=== PATIENT | male | born 1950 | race Caucasian/White ===

== ENCOUNTER 2017-04-06 13:41 | Emergency (ER) | payer OTHER, BC ==
[~2017-04-06] VITALS: Ht 175.3 cm; Wt 78.1 kg
[2017-04-06 13:49] VITALS: TEMP 36.7; Ht 175.3 cm; Wt 78.1 kg
[2017-04-06 14:25] VITALS: O2SAT 97
[2017-04-06 14:37] LABS: HEMATOCRIT 48.4 % (42-52); MEAN CELL VOLUME 90.5 fL (80-100); MEAN CORPUSCULAR HEMOGLOBIN 29.7 pg (25-34); MEAN CORPUSCULAR HGB CONC 32.9 g/dl (32-36); MEAN PLATELET VOLUME 10.8 fL (7.4-10.4); PLATELET COUNT 193 K/uL (130-400); RED BLOOD COUNT 5.35 M/uL (4.7-6.1); WHITE BLOOD COUNT 7.39 K/uL (4.8-10.8)
--- NOTE | 2017-04-06 14:39 | DIAGNOSTIC IMAGING REPORT ---
CHEST ONE VIEW PORTABLE HISTORY: Atypical CHEST PAIN COMPARISON: None. FINDINGS: Left basilar linear densities favor subsegmental atelectasis are scarring. Old, healed left-sided rib fractures. The right lung is clear. No pleural effusions. No pneumothorax. The heart is normal in size. Mildly tortuous thoracic aorta. IMPRESSION: Left basilar linear densities favor subsegmental atelectasis or scarring. Otherwise, no acute process within the chest. Electronically signed by: Jose Chaudhary M.D. 04/06/2017 2:38 PM Dictated Date/Time: 04/06/2017 2:36 PM
[2017-04-06 14:49] LABS: PARTIAL THROMBOPLASTIN RATIO 1.1; PROTHROMBIN TIME (PATIENT) 10.5 SECONDS (9.0-12.0)
[2017-04-06 15:10] LABS: BUN/CREATININE RATIO 17.1 (10-20); POTASSIUM 4.4 mmol/L (3.5-5.1)
[2017-04-06 15:14] LABS: ALB/GLOB RATIO 1.2 (0.9-2); CKMB/CK RATIO 1.5 (0-3.0)
[2017-04-06] MEDS ORDERED: ASPIRIN 81 MG CHEW PO STA (15:47)
[2017-04-06] MEDS ORDERED: ONDANSETRON INJ 2 MG/ML 2 ML VIAL IV STA (15:47)
[2017-04-06] MEDS ORDERED: MoRPHine SULFATE 4 MG/ML 1 ML CARP\\VIAL IV STA (15:47)
[2017-04-06] MEDS ORDERED: ASPI81TA28 PO (15:51)
[2017-04-06 16:43] VITALS: BP 135/99; PULSE 73; O2SAT 93
--- NOTE | 2017-04-06 20:31 | EMERGENCY ROOM VISIT NOTE ---
History Report prepared by Vinicius: Robert Ozuna Under the Supervision of: Dr. Alan Villalobos M.D. First contact with patient: 14:21 Chief Complaint: CHEST PAIN Stated Complaint: DULL ACHE/PAIN LT CHEST SHOULDER AREA - HEART? Nursing Triage Summary: Just had an MRI and MRA of the brain because of headaches and mother of aneurysm. He has had a dull ache on the left chest wall. Tingling in the fingers. Dr. Holley sent for cardiac enzymes. History of Present Illness The patient is a 66 year old male who presents to the Emergency Room with complaints of constant, dull chest pain that started this morning. He rates his current discomfort a 1/10 in severity. The patient states that he has been having intermitted chest pain that started three months ago. He reports that he did not have pain last night. He notes that his fingers were tingling this morning as well. The patient's reports that he is extremely active and he gets cramps in his calves and arches of his feet. He notes that when he twists to the right, he feels the pain radiate to his shoulder. He notes he has also had intermittent headaches for the past two years. He reports that he would take Excedrin and they go away. Pt denies LOC, Current headache, fevers, chills , diaphoresis, visual changes, neck pain, breathing difficulties, nausea, vomiting, abdominal pain, back pain, melena, hematochezia, urinary symptoms, numbness, weakness, lymphadenopathy, rash, or other complaints. Source of History: patient, family () Onset: this morning Position: chest Symptom Intensity: 1/10 Quality: dull Timing: constant Modifying Factors (Worsening): movement (looking to the right) Review of Systems See HPI for pertinent positives and negatives. A total of ten systems were reviewed and were otherwise negative. Past Medical & Surgical Medical Problems: (1) Hypertension Family History Cancer Gallbladder disease Hypertension Social History Smoking Status: Never Smoker Marital Status: Housing Status: lives with family Occupation Status: retired Current/Historical Medications Scheduled Aspirin (Aspirin Ec), 81 MG PO DAILY Allergies Coded Allergies: No Known Allergies (Unverified , 04/06/17) Physical Exam Vital Signs Date Time Temp Pulse Resp B/P Pulse Ox O2 Delivery O2 Flow Rate FiO2 04/06/17 16:43 73 135/99 93 Room Air 04/06/17 15:32 62 18 140/87 96 Room Air 04/06/17 14:27 74 04/06/17 14:25 97 Room Air 04/06/17 13:49 36.7 62 20 133/73 96 Room Air Physical Exam GENERAL: Awake, alert, well-appearing, in no distress HENT: Normocephalic, atraumatic. Oropharynx unremarkable. EYES: Normal conjunctiva. Sclera non-icteric. NECK: Supple. No nuchal rigidity. FROM. No JVD. RESPIRATORY: Clear to auscultation. CARDIAC: Regular rate, normal rhythm. Extremities warm and well perfused. Pulses equal. ABDOMEN: Soft, non-distended. No tenderness to palpation. No rebound or guarding. No masses. RECTAL: Deferred. MUSCULOSKELETAL: Chest examination reveals no tenderness. The back is symmetrical on inspection without obvious abnormality. There is no CVA tenderness to palpation. No joint edema. LOWER EXTREMITIES: Calves are equal size bilaterally and non-tender. No edema. No discoloration. NEURO: Normal sensorium. No sensory or motor deficits noted. SKIN: No rash or jaundice noted. Medical Decision & Procedures ER Provider Diagnostic Interpretation: X-ray: Per my interpretation, radiologist review. CHEST ONE VIEW PORTABLE HISTORY: Atypical CHEST PAIN COMPARISON: None. FINDINGS: Left basilar linear densities favor subsegmental atelectasis are scarring. Old, healed left-sided rib fractures. The right lung is clear. No pleural effusions. No pneumothorax. The heart is normal in size. Mildly tortuous thoracic aorta. IMPRESSION: Left basilar linear densities favor subsegmental atelectasis or scarring. Otherwise, no acute process within the chest. Electronically signed by: Jose Chaudhary M.D. 04/06/2017 2:38 PM Dictated Date/Time: 04/06/2017 2:36 PM Laboratory Results 04/06/17 14:25 04/06/17 14:25 Test 04/06/17 14:25 04/06/17 14:29 Red Blood Count 5.35 M/uL (4.7-6.1) Mean Corpuscular Volume 90.5 fL (80-100) Mean Corpuscular Hemoglobin 29.7 pg (25-34) Mean Corpuscular Hemoglobin Concent 32.9 g/dl (32-36) RDW Standard Deviation 41.8 fL (36.4-46.3) RDW Coefficient of Variation 12.6 % (11.5-14.5) Mean Platelet Volume 10.8 fL (7.4-10.4) Prothrombin Time 10.5 SECONDS (9.0-12.0) Prothromb Time International Ratio 1.0 (0.9-1.1) Activated Partial Thromboplast Time 27.5 SECONDS (21.0-31.0) Partial Thromboplastin Ratio 1.1 Anion Gap 5.0 mmol/L (3-11) Est Creatinine Clear Calc Drug Dose 71.7 ml/min Estimated GFR () 89.9 Estimated GFR (Non- 77.5 BUN/Creatinine Ratio 17.1 (10-20) Calcium Level 9.0 mg/dl (8.5-10.1) Total Bilirubin 0.8 mg/dl (0.2-1) Aspartate Amino Transf (AST/SGOT) 28 U/L (15-37) Alanine Aminotransferase (ALT/SGPT) 37 U/L (12-78) Alkaline Phosphatase 93 U/L (45-117) Total Creatine Kinase 168 U/L (39-308) Creatine Kinase MB 2.5 ng/ml (0.5-3.6) Creatine Kinase MB Ratio 1.5 (0-3.0) Total Protein 7.6 gm/dl (6.4-8.2) Albumin 4.2 gm/dl (3.4-5.0) Globulin 3.4 gm/dl (2.5-4.0) Albumin/Globulin Ratio 1.2 (0.9-2) Bedside Troponin I 0.000 ng/ml (0-0.045) Laboratory results reviewed by me Medications Administered Medications (Trade) Dose Ordered Sig/[place] Route Start Time Stop Time Status Last Admin Dose Admin Aspirin (Aspirin Chew) 324 mg NOW STAT PO 04/06/17 15:47 04/06/17 15:48 DC 04/06/17 15:54 324 MG ECG Indication: chest pain Rate (beats per minute): 61 Rhythm: normal sinus Findings: no acute ischemic change, no ectopy ED Course 1430: The patient was evaluated in room A02. A complete history and physical exam was performed. 1536: I discussed the patient's case with Dr. Sands, Cardiology and the patient will have a stress test done in the catheterization lab if room permits. 1546: Dr. Sands confirmed that there is room in the lab. The patient will have a stress test completed. 1547: Ordered Aspirin 324mg PO 1549: I updated the patient and he is pain-free at the moment 1640: I reevaluated the patient and he is feeling better 1650: I spoke with Dr. Sands and the patient's stress test was normal. 1705: I reevaluated the patient. Discussed results and discharge instructions: he verbalized understanding and agreement. The patient is ready for discharge. Medical Decision Triage Nursing notes reviewed. The patient's presentation and history were concerning for chest pain. Etiologies such as musculoskeletal, cardiac ischemia, aortic dissection, pulmonary embolism, pneumonia, pneumothorax, infections, gastrointestinal, as well as others were entertained. The patient was evaluated. He has had chest pain was left-sided since this morning. It has been constant. His ECG and laboratory testing was unremarkable. Troponin was negative. Given the findings I discussed the case with cardiology. The patient will be administered a stress test. He was given aspirin. Zofran and morphine were ordered for pain however the patient's symptoms resolved and this was not administered. The patient underwent stress testing and did very well with this. He had no problems whatsoever. Dr. Sands of cardiology stated that his stress test was negative. The patient was informed and was discharged in stable condition. By the evaluation outlined above other emergent etiologies such as those listed in the differential, as well as others, were deemed relatively unlikely. The patient was informed about the findings as listed above. All questions were answered and he was pleased with the treatment. Return instructions were outlined and the patient was discharged in stable condition. The patient was referred to his PCP for follow-up for a recheck of the current condition. The chart was completed utilizing [employer] Speech voice recognition software. Grammatical errors, random word insertions, pronoun errors, and incomplete sentences are an occasional consequence of this system due to software limitations, ambient noise, and hardware issues. Any formal questions or concerns about the content, text, or information contained within the body of this dictation should be directly addressed to the physician for clarification. Consults Time Called: 1447 Consulting Physician: Dr. Sands, Cardiology Returned Call: 1538 I discussed the patient's case with Dr. Sands, Cardiology and the patient will have a stress test done in the catheterization lab if time permits. 1546: Dr. Sands confirmed that there is room in the lab. The patient will have a stress test completed. 1650: I spoke with Dr. Sands and the patient's stress test was normal. Impression Primary Impression: Left sided chest pain Scribe Attestation The scribe's documentation has been prepared under my direction and personally reviewed by me in its entirety. I confirm that the note above accurately reflects all work, treatment, procedures, and medical decision making performed by me. Departure Information Dispostion Home / Self-Care Referrals Glen Holley D.O.Int.Med. (PCP) Patient Instructions My [facility] Additional Instructions CHEST PAIN INSTRUCTIONS: Acetaminophen(Tylenol) may be used for fever or pain. Use 1000mg every six hours as needed. Avoid using more than 4000mg in a 24 hour period. Rest and drink plenty of fluids as tolerated. Continue current medications. Avoid strenuous activities and anything that worsens your pain. Resume normal activities once your symptoms resolve. Return to the ER immediately for worsening or persistent chest pain, abdominal pain, vomiting, fevers, chest pains, difficulty breathing, severe headache, passing out, numbness, weakness, worsening of your condition, or as needed. Follow up with your primary physician in 2-3 days for a recheck of your current condition and to discuss your MRI/MRA results.
--- NOTE | 2017-04-07 04:42 | EXERCISE STRESS TEST ---
EXERCISE TREADMILL REPORT REFERRING PHYSICIAN: Dr. Villalobos. CHIEF COMPLAINTS: Chest pain. FINDINGS: The patient exercised using a standard Lang protocol for 9 minutes and 30 seconds. Baseline EKG was normal. There were no significant ST-segment changes during exercise or recovery. The patient's blood pressure response to exercise was normal. The patient did have some mild left shoulder and chest pain at the beginning of the treadmill test which resolved with exercise. Hein treadmill score was 9 which represents low risk. IMPRESSION: 1. Atypical chest pain with normal maximal exercise treadmill test and no evidence of inducible ischemia.
== END 2017-04-06 17:05 | disposition home or self-care (01) ==
LOC: C.EDB 13:45 → C.EDA 17:05
DX: R07.9 Chest pain, unspecified (principal); I10 Essential (primary) hypertension; R51 Headache; Z80.9 Family history of malignant neoplasm, unspecified; Z82.49 Family history of ischemic heart disease and other diseases of the circulatory system; Z79.82 Long term (current) use of aspirin; R93.0 Abnormal findings on diagnostic imaging of skull and head, not elsewhere classified

== ENCOUNTER → 2017-04-06 | Outpatient (CLI) | payer OTHER, BC ==
[~2017-04-06] MED LIST: ASPI81TA28 PO
--- NOTE | 2017-04-06 13:09 | DIAGNOSTIC IMAGING REPORT ---
Brain MRA HISTORY: R51 [id number] Family history of cerebral [id number] TECHNIQUE: 3-D [id number] MRA of the brain was performed without contrast. COMPARISON STUDY: None. FINDINGS: Visualized intracranial internal carotid arteries, distal vertebral arteries, and basilar artery are widely patent. There is no significant stenosis or occlusion seen within the bilateral ACAs, MCAs, or shot fireman. There is a questionable 1.5 mm aneurysm seen within the proximal left A2 segment on axial image 95 of 194. IMPRESSION: No significant stenosis or occlusion within the [place]. 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 One year follow-up can be performed to ensure stability. Electronically signed by: Jose Chaudhary M.D. 04/06/2017 1:07 PM Dictated Date/Time: 04/06/2017 1:03 PM
--- NOTE | 2017-04-06 13:37 | DIAGNOSTIC IMAGING REPORT ---
Brain MRI WITHOUT CONTRAST HISTORY: Headache R51 [id number] Family history of cerebral [id number] TECHNIQUE: Multiplanar multisequence MRI of the brain was performed without the use of contrast. COMPARISON STUDY: None. FINDINGS: There are no areas of restricted diffusion to suggest acute infarction. The midline structures are intact. The paranasal sinuses are clear. The mastoid air cells are clear. The ventricles and sulci are within normal limits for age. There is no mass, hematoma, midline shift. The major vascular flow-voids at the skull base are well maintained. Low-lying cerebellar tonsils. Several small foci of increased signal within the periventricular deep white matter regions consistent with mild chronic small vessel change of aging IMPRESSION: No acute intracranial abnormality. Mild chronic small vessel change. Low-lying cerebellar tonsils. Electronically signed by: Alfonso Nash M.D. 04/06/2017 1:36 PM Dictated Date/Time: 04/06/2017 1:32 PM
== END | disposition home or self-care (01) ==
LOC: C.MRI 12:15
PROVIDERS: ATTEND Family Medicine
DX: R51 Headache (principal); Z82.49 Family history of ischemic heart disease and other diseases of the circulatory system; R93.0 Abnormal findings on diagnostic imaging of skull and head, not elsewhere classified

== ENCOUNTER → 2017-04-15 | Outpatient (CLI) | payer OTHER, BC ==
[2017-04-15 13:56] LABS: SYNOVIAL FLUID APPEARANCE CLOUDY; SYNOVIAL FLUID COLOR AMBER; SYNOVIAL FLUID MONONUC RELAT 92.9 %; SYNOVIAL FLUID POLYNUC RELAT 7.1 %
[2017-04-18 19:33] LABS: LYME DNA PCR CSF OR SYNOVIAL Not detected (Not Detected); LYME DNA SOURCE Synovial Fluid
== END | disposition home or self-care (01) ==
LOC: C.LABSPEC 10:58
PROVIDERS: ATTEND Orthopaedic Surgery
DX: M25.562 Pain in left knee (principal); M25.462 Effusion, left knee